=== PATIENT | male | born 1990 | race Caucasian/White ===

== ENCOUNTER 2017-01-10 10:15 | Emergency (ER) | payer OTHER ==
[2017-01-10] MEDS ORDERED: Sodium Chloride 0.9% 1000 ML 1,000 ML IV STA (10:41)
[2017-01-10] MEDS ORDERED: Phenergan 25 MG INJ IV ONE (10:41)
[2017-01-10] MEDS ORDERED: Phenergan 25 MG INJ ONE (10:46)
[2017-01-10] MEDS ORDERED: Sodium Chloride 0.9% 1000 ML 1,000 ML ONE (10:46)
--- NOTE | 2017-01-10 10:46 | ERPHSYRPT ---
- History of Present Illness Time Seen by Provider: 01/10/17 10:37 Historian: patient Exam Limitations: no limitations Patient Subjective Stated Complaint: PT REPORTS WAKING UP TO RIGHT SIDED ABD PAIN-REPORTS N/V/D-STATES HE THINKS IT IS HIS GALLBLADDER Triage Nursing Assessment: PT [place] DRY-BOWEL SOUNDS PRESENT-ABD SOFT ET TENDER TO PALP-NO REBOUND TENDERNESS NOTED Physician History: 26-year-old white male with history of right arm fracture multiple dislocation GERD. Patient arrives with complaint of low getting up this morning with the right upper quadrant pain vomiting, loose stools. Patient has not had a fever. Past medical history includes fracture left arm multiple dislocations GERD lives Timing/Duration: today (this morning) Activities at Onset: rest Quality: cramping Abdominal Pain Onset Location: RUQ Pain Radiation: no radiation Severity of Pain-Max: moderate Severity of Pain-Current: moderate Modifying Factors: Improves With: vomiting. Worsens With: analgesics, antacids , breathing, coughing, defecating, eating, exercise, lying down, movement, palpation, rest, urinating, position, walking Associated Symptoms: nausea, No back, No chest pain, No diaphoresis, No fever/ chills, No fatigue, No headache, No heartburn, No loss of appetite, No neck pain , No rash, No shortness of breath, No syncope, No testicular pain Previous symptoms: no prior history Allergies/Adverse Reactions: No Known Drug Allergies Allergy (Verified 01/10/17 10:32) Home Medications: No Home Meds 1 ea UD 07/17/16 [History] Hx Tetanus, Diphtheria Vaccination/Date Given: Yes Hx Influenza Vaccination/Date Given: No Hx Pneumococcal Vaccination/Date Given: No Immunizations Up to Date: Yes - Review of Systems Constitutional: No Fever, No Chills Eyes: No Symptoms Ears, Nose, & Throat: No Symptoms Respiratory: No Cough, No Dyspnea Cardiac: No Chest Pain, No Edema, No Syncope Abdominal/Gastrointestinal: Abdominal Pain, Nausea, Vomiting, Diarrhea, No Constipation, No Hematemesis, No Hematochezia, No Melena, No Dysphagia, No Appetite Changes Genitourinary Symptoms: No Dysuria Musculoskeletal: No Back Pain, No Neck Pain Skin: No Rash Neurological: No Dizziness, No Focal Weakness, No Sensory Changes Psychological: No Symptoms Endocrine: No Symptoms All Other Systems: Reviewed and Negative - Past Medical History Pertinent Past Medical History: Yes Neurological History: No Pertinent History ENT History: No Pertinent History Cardiac History: No Pertinent History Respiratory History: Asthma Endocrine Medical History: No Pertinent History Musculoskeletal History: Fractures, Other GI Medical History: GERD History: No Pertinent History Psycho-Social History: No Pertinent History Male Reproductive Disorders: No Pertinent History Other Medical History: fx L arm, R shoulder multiple dislocations - Past Surgical History Past Surgical History: No Neuro Surgical History: No Pertinent History Cardiac: No Pertinent History Respiratory: No Pertinent History Gastrointestinal: No Pertinent History Genitourinary: No Pertinent History Musculoskeletal: No Pertinent History Male Surgical History: No Pertinent History - Social History Smoking Status: Never smoker How long have you smoked: 7 Exposure to second hand smoke: No Drug Use: marijuana Patient Lives Alone: No - Nursing Vital Signs Nursing Vital Signs: Initial Vital Signs Temperature 98.2 F Temperature Source Oral Pulse Rate 52 Respiratory Rate 22 Blood Pressure [Right Arm] 120/68 Pain Intensity 0 - Physical Exam General Appearance: no apparent distress, alert Eye Exam: PERRL/EOMI, eyes nml inspection Ears, Nose, Throat Exam: normal ENT inspection, pharynx normal, moist mucous membranes Neck Exam: normal inspection, non-tender, supple, full range of motion Respiratory Exam: normal breath sounds, lungs clear, No respiratory distress Cardiovascular Exam: regular rate/rhythm, normal heart sounds Gastrointestinal/Abdomen Exam: soft, normal bowel sounds, tenderness (mild diffuse tenderness) Back Exam: normal inspection, normal range of motion, No CVA tenderness, No vertebral tenderness Extremity Exam: normal inspection, normal range of motion, pelvis stable Neurologic Exam: alert, oriented x 3, cooperative, normal mood/affect, nml cerebellar function, sensation nml, No motor deficits Skin Exam: normal color, warm, dry SpO2 Interpretation: normal (97%) SpO2: 97 Oxygen Delivery: Room Air - Course Nursing assessment & vital signs reviewed: Yes Ordered Tests: Active Orders 24 hr Category Date Time Status IV Insertion STAT Care 01/10/17 10:41 Active AMYLASE Stat Lab 01/10/17 10:51 Completed CBC W DIFF Stat Lab 01/10/17 10:51 Completed CMP Stat Lab 01/10/17 10:51 Completed LIPASE Stat Lab 01/10/17 10:51 Completed UA W/ MICROSCOPIC Stat Lab 01/10/17 10:51 Completed Medication Summary Discontinued Medications Generic Name Dose Route Start Last Admin Trade Name Freq PRN Reason Stop Dose Admin Sodium Chloride 1,000 mls @ 999 mls/hr 01/10/17 10:41 01/10/17 10:50 Sodium Chloride 0.9% 1000 Ml IV 01/10/17 11:41 999 mls/hr .Q1H1M STA Administration Sodium Chloride Confirm 01/10/17 10:46 Sodium Chloride 0.9% 1000 Ml Administered 01/10/17 10:47 Dose 1,000 mls @ ud .ROUTE .STK-MED ONE Promethazine HCl 12.5 mg 01/10/17 10:41 01/10/17 10:50 Phenergan 25 Mg Inj IV 01/10/17 10:42 12.5 mg STAT ONE Administration Promethazine HCl Confirm 01/10/17 10:46 Phenergan 25 Mg Inj Administered 01/10/17 10:47 Dose 25 mg .ROUTE .STK-MED ONE Lab/Rad Data: Laboratory Result Diagrams 01/10/17 10:51 01/10/17 10:51 Laboratory Results 01/10/17 01/10/17 01/10/17 Range/Units 10:51 10:51 10:51 WBC (4.0-10.5) K/mm3 RBC (4.1-5.6) M/mm3 Hgb (12.5-18.0) gm/dl Hct (42-50) % MCV (78-100) fl MCH (26-32) pg MCHC (32-36) g/dl RDW (11.5-14.0) % Plt Count (150-450) K/mm3 MPV (6-9.5) fl Gran % (36.0-66.0) % Lymphocytes % (24.0-44.0) % Monocytes % (0.0-12.0) % Eosinophils % (0.00-5.0) % Basophils % (0.0-0.4) % Basophils # (0-0.4) Sodium 142 (136-145) mEq/L Potassium 3.8 (3.5-5.1) mEq/L Chloride 107 (98-107) mEq/L Carbon Dioxide 27.3 (21-32) mEq/L Anion Gap 11.8 (5-15) MEQ/L BUN 9 (9-20) mg/dL Creatinine 0.94 (0.55-1.30) mg/dl Estimated GFR > 60 ML/MIN Glucose 86 (70-110) MG/DL Calcium 8.3 L (8.5-10.1) mg/dL Total Bilirubin 0.3 (0.2-1.0) mg/dL AST 15 (15-37) U/L ALT 15 (12-78) U/L Alkaline Phosphatase 86 (46-116) U/L Serum Total Protein 6.6 (6.4-8.2) gm/dL Albumin 3.6 (3.4-5.0) g/dL Amylase 51 (25-115) U/L Lipase 227 (73-393) U/L Ur Collection Type VOID Urine Color YELLOW (YELLOW) Urine Appearance CLEAR (CLEAR) Urine pH 6.0 (5-6) Ur Specific Morrison >=1.030 (1.005-1.025) Urine Protein TRACE (Negative) Urine Glucose (UA) NEGATIVE (NEGATIVE) mg/dL Urine Ketones NEGATIVE (NEGATIVE) Urine Nitrite NEGATIVE (NEGATIVE) Urine Bilirubin NEGATIVE (NEGATIVE) Urine Urobilinogen 0.2 (0-1) mg/dL Urine WBC (Auto) NEGATIVE (NEGATIVE) Urine RBC (Auto) NEGATIVE (0-5) Brendan/ul Urine Bacteria RARE (NEGATIVE) /HPF Urine Mucus MODERATE (NEGATIVE) /HPF Influenza Type A Ag POSITIVE (NEGATIVE) Influenza Type B Ag NEGATIVE (NEGATIVE) RSV (PCR) NEGATIVE (Negative) Specimen Received 01/10/17 1055 01/10/17 Range/Units 10:51 WBC 5.4 (4.0-10.5) K/mm3 RBC 5.13 (4.1-5.6) M/mm3 Hgb 15.4 (12.5-18.0) gm/dl Hct 45.3 (42-50) % MCV 88.3 (78-100) fl MCH 30.0 (26-32) pg MCHC 34.0 (32-36) g/dl RDW 13.4 (11.5-14.0) % Plt Count 215 (150-450) K/mm3 MPV 11.0 H (6-9.5) fl Gran % 52.1 (36.0-66.0) % Lymphocytes % 33.5 (24.0-44.0) % Monocytes % 12.9 H (0.0-12.0) % Eosinophils % 1.1 (0.00-5.0) % Basophils % 0.4 (0.0-0.4) % Basophils # 0.02 (0-0.4) Sodium (136-145) mEq/L Potassium (3.5-5.1) mEq/L Chloride (98-107) mEq/L Carbon Dioxide (21-32) mEq/L Anion Gap (5-15) MEQ/L BUN (9-20) mg/dL Creatinine (0.55-1.30) mg/dl Estimated GFR ML/MIN Glucose (70-110) MG/DL Calcium (8.5-10.1) mg/dL Total Bilirubin (0.2-1.0) mg/dL AST (15-37) U/L ALT (12-78) U/L Alkaline Phosphatase (46-116) U/L Serum Total Protein (6.4-8.2) gm/dL Albumin (3.4-5.0) g/dL Amylase (25-115) U/L Lipase (73-393) U/L Ur Collection Type Urine Color (YELLOW) Urine Appearance (CLEAR) Urine pH (5-6) Ur Specific Morrison (1.005-1.025) Urine Protein (Negative) Urine Glucose (UA) (NEGATIVE) mg/dL Urine Ketones (NEGATIVE) Urine Nitrite (NEGATIVE) Urine Bilirubin (NEGATIVE) Urine Urobilinogen (0-1) mg/dL Urine WBC (Auto) (NEGATIVE) Urine RBC (Auto) (0-5) Brendan/ul Urine Bacteria (NEGATIVE) /HPF Urine Mucus (NEGATIVE) /HPF Influenza Type A Ag (NEGATIVE) Influenza Type B Ag (NEGATIVE) RSV (PCR) (Negative) Specimen Received - Progress Progress: improved Progress Note: 01/10/17 12:48 Patient with positive influenza A. Patient received IV normal saline Phenergan he is improving. CBC CMP amylase lipase are essentially normal Will discharge with Tamiflu Zofran and Jackson - Departure Time of Disposition: 12:49 Departure Disposition: Home Clinical Impression: Right upper quadrant abdominal pain, Nausea, vomiting, and diarrhea, Influenza A Condition: Fair Critical Care Time: No Referrals: JESSICA GUZMÁN [Primary Care Provider] - Instructions: Abdominal Pain-Adult Additional Instructions: Return home. Plenty of fluids. Clear fluids only 24-48 hours if abdominal pain nausea vomiting or diarrhea. Phenergan 25 mg one orally every 4-6 hours as needed for nausea. Jackson 5/325 #12 one orally every 4-6 hours as needed for pain. Follow-up with your family . symptoms are worse, no better in 48-72 hours, or persist longer than one week . Return for acute distress or for severe symptoms Prescriptions: Hydrocodone Bit/Acetaminophen [Jackson 5/325Mg] 1 tab PO Q4-6HPRN PRN #12 tablet PRN Reason: Pain Oseltamivir 75 mg [Tamiflu 75MG Capsule] 75 mg PO BID #10 cap Promethazine HCl 25 mg [Phenergan 25 mg] 25 mg PO Q4-6HPRN PRN #12 tablet PRN Reason: nausea and vomiting
[2017-01-10 10:54] LABS: BASOPHIL % 0.4 % (0.0-0.4); Eosinophil % 1.1 % (0.00-5.0); Granulocytes % 52.1 % (36.0-66.0); Lymphocytes % 33.5 % (24.0-44.0); Mean Cell Volume 88.3 fl (78-100); Monocytes % 12.9 % (0.0-12.0); Platelet Count 215 K/mm3 (150-450); Red Blood Count 5.13 M/mm3 (4.1-5.6); Red Cell Distribution Width 13.4 % (11.5-14.0); White Blood Count 5.4 K/mm3 (4.0-10.5)
[2017-01-10 10:58] LABS: Collection Type VOID
[2017-01-10 10:59] LABS: COMPLETE URINE MICROSCOPIC? YES
[2017-01-10 11:14] LABS: ALBUMIN 3.6 g/dL (3.4-5.0); ALKALINE PHOSPHATASE 86 U/L (46-116); ANION GAP 11.8 MEQ/L (5-15); BILIRUBIN,TOTAL 0.3 mg/dL (0.2-1.0); BLOOD UREA NITROGEN 9 mg/dL (9-20); Bacteria RARE /HPF (NEGATIVE); CHLORIDE 107 mEq/L (98-107); Carbon Dioxide 27.3 mEq/L (21-32); Glucose 86 MG/DL (70-110); LIPASE 227 U/L (73-393); Mucus MODERATE /HPF (NEGATIVE); Potassium 3.8 mEq/L (3.5-5.1); SGOT/AST 15 U/L (15-37); SGPT/ALT 15 U/L (12-78); SODIUM 142 mEq/L (136-145); Total Protein 6.6 gm/dL (6.4-8.2)
[2017-01-10 13:03] VITALS: BP 134/68; PULSE 74; O2SAT 16
== END 2017-01-10 13:02 | disposition home or self-care (01) ==
LOC: ED 10:15
DX: R10.11 Right upper quadrant pain (principal); R11.2 Nausea with vomiting, unspecified; R19.7 Diarrhea, unspecified; J11.1 Influenza due to unidentified influenza virus with other respiratory manifestations
CPT/HCPCS: 36000; 36415; 80053; 81000; 82150; 83690; 85025; 87631; 96360; 96374; 99283; 99284; J2550

== ENCOUNTER 2017-12-17 09:31 | Emergency (ER) | payer OTHER ==
[2017-12-17] MEDS ORDERED: Norflex 60 MG/2 ML IM ONE (09:51)
[2017-12-17] MEDS ORDERED: TORAdol 30 mg Injection IM ONE (09:51)
--- NOTE | 2017-12-17 09:57 | ERPHSYRPT ---
- History of Present Illness Time Seen by Provider: 12/17/17 09:52 Source: patient Exam Limitations: no limitations Patient Subjective Stated Complaint: lower back pain started yesterday after shoveling rock all day Triage Nursing Assessment: ambulate to room guarding lower back. skin w/d, color normal, resp easy. denies any other c/o at this time. Physician History: 27-year-old white male arrives with complaint of lower back pain symptoms since yesterday morning while shoveling rock. Patient states he was shoveling rock yesterday when he felt a sharp pain in his lower back he is having pain in the lower back. Is not having any sensory loss. Denies other complaints. Patient states pain is worse today. Past medical history includes asthma, fractures, GERD, fracture left arm, multiple dislocations of the patient's right shoulder. Past surgical history is negative. Timing/Duration: yesterday Method of Injury: other (shoveling rock) Quality: sharp, aching Back Pain Location: lumbar spine Severity of Pain-Max: moderate Severity of Pain-Current: moderate Modifying Factors: Improves With: movement Associated Symptoms: lower back pain, No fever, No chills, No sweating, No urinary incontinence, No loss of bowel control, No constipation, No nausea, No vomiting, No problems urinating, No light-headedness, No dizziness, No numbness in legs/feet, No weakness, No sensory/motor loss, No tingling in legs/feet, No muscle spasms Previous symptoms: no prior history Allergies/Adverse Reactions: No Known Drug Allergies Allergy (Verified 12/17/17 09:43) Home Medications: No Home Meds [No Home Meds] 1 moiz VALENTINO 07/17/16 [History] Hx Tetanus, Diphtheria Vaccination/Date Given: Yes (2012) Hx Influenza Vaccination/Date Given: No Hx Pneumococcal Vaccination/Date Given: No - Review of Systems Constitutional: No Fever, No Chills Eyes: No Symptoms Ears, Nose, & Throat: No Symptoms Respiratory: No Cough, No Dyspnea Cardiac: No Chest Pain, No Edema, No Syncope Abdominal/Gastrointestinal: No Abdominal Pain, No Nausea, No Vomiting, No Diarrhea Genitourinary Symptoms: No Dysuria Musculoskeletal: Back Pain, Injury, No Arthralgias, No Neck Pain, No Deformity, No Fall, No Joint Redness, No Joint Pain, No Joint Swelling, No Myalgias Skin: No Rash Neurological: No Dizziness, No Focal Weakness, No Sensory Changes Psychological: No Symptoms Endocrine: No Symptoms All Other Systems: Reviewed and Negative - Past Medical History Pertinent Past Medical History: Yes Neurological History: No Pertinent History ENT History: No Pertinent History Cardiac History: No Pertinent History Respiratory History: Asthma Endocrine Medical History: No Pertinent History Musculoskeletal History: Fractures, Other GI Medical History: GERD History: No Pertinent History Psycho-Social History: Depression Male Reproductive Disorders: No Pertinent History Other Medical History: fx L arm, R shoulder multiple dislocations - Past Surgical History Past Surgical History: No Neuro Surgical History: No Pertinent History Cardiac: No Pertinent History Respiratory: No Pertinent History Gastrointestinal: No Pertinent History Genitourinary: No Pertinent History Musculoskeletal: No Pertinent History Male Surgical History: No Pertinent History - Social History Smoking Status: Current every day smoker How long have you smoked: 15 Exposure to second hand smoke: No Drug Use: marijuana Patient Lives Alone: No - Nursing Vital Signs Nursing Vital Signs: Initial Vital Signs Temperature 97.6 F 12/17/17 09:39 Pulse Rate 78 12/17/17 09:39 Respiratory Rate 16 12/17/17 09:39 Blood Pressure 132/75 12/17/17 09:39 O2 Sat by Pulse Oximetry 99 12/17/17 09:39 Pain Scale Pain Intensity 6 - Physical Exam General Appearance: mild distress Ears, Nose, Throat Exam: normal ENT inspection, TMs normal, pharynx normal, moist mucous membranes, No dry mucous membranes, No TM abnormal (R), No TM abnormal (L), No pharyngeal erythema, No tonsillar exudate Neck Exam: normal inspection, non-tender, supple, full range of motion, No meningismus, No midline tenderness Respiratory Exam: normal breath sounds Cardiovascular Exam: regular rate/rhythm, normal heart sounds Gastrointestinal Exam: soft, No tenderness, No mass Back Exam: point tenderness, other (patient tender with palpation and movement in the right low lumbar region. 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, normal mood/affect, nml station & gait, sensation nml, No motor deficits Skin Exam: normal color, warm, dry, No rash SpO2 Interpretation: normal SpO2: 99 Oxygen Delivery: Room Air - Course Nursing assessment & vital signs reviewed: Yes - Radiology Exams L-Spine X-ray Interpretation: Discussed w/ radiologist, Other (stable non acute lumbar spine with chronic features) Ordered Tests: Active Orders 24 hr Category Date Time Status LUMBAR LIMITED (2 OR 3 VIEWS) Stat Exams 12/17/17 09:51 Completed Medication Summary Discontinued Medications Generic Name Dose Route Start Last Admin Trade Name Cristinoq PRN Reason Stop Dose Admin Ketorolac Tromethamine 60 mg 12/17/17 09:51 12/17/17 10:11 Toradol 30 Mg Injection IM 12/17/17 09:52 60 mg STAT ONE Administration Ketorolac Tromethamine Confirm 12/17/17 10:07 Toradol 30 Mg Injection Administered 12/17/17 10:08 Dose 60 mg .ROUTE .STK-MED ONE Orphenadrine Citrate 60 mg 12/17/17 09:51 12/17/17 10:11 Norflex 60 Mg/2 Ml IM 12/17/17 09:52 60 mg STAT ONE Administration Orphenadrine Citrate Confirm 12/17/17 10:07 Norflex 60 Mg/2 Ml Administered 12/17/17 10:08 Dose 60 mg .ROUTE .STK-MED ONE - Progress Progress: improved Progress Note: 12/17/17 09:58 27-year-old white male arrives with complaint of pain in the right back lumbar region symptoms since yesterday. He states he injured his back while shoveling rock he felt a sharp pain. He has pain with movement and palpation in the right posterior lumbar region. Patient is able to sit with both thighs flexed at the hips to 90 and both knees extended. He has full range of motion to all extremities. Patient is given Toradol 60 mg Norflex 60 mg IM will obtain lumbar series. 12/17/17 10:25 Patient improved, not completely pain-free after Toradol and Norflex. Will discharge with the Flexeril 10 mg orally 3 times a day for 5 days. Naprosyn 500 mg one orally twice a day with food #20. - Departure Time of Disposition: 10:26 Departure Disposition: Home Clinical Impression: Back pain Qualifiers: Back pain location: low back pain Chronicity: acute Back pain laterality: right Sciatica presence: without sciatica Qualified Code(s): M54.5 - Low back pain Lumbar strain Qualifiers: Encounter type: initial encounter Qualified Code(s): S39.012A - Strain of muscle, fascia and tendon of lower back, initial encounter Condition: Fair Critical Care Time: No Referrals: JESSICA GUZMÁN [Primary Care Provider] - Instructions: Low Back Pain (DC) Additional Instructions: Return home. Cold packs to area 24-48 hours. Avoid strenuous bending twisting lifting pushing pulling 48 hours longer if pain persists. Follow-up with your family doctor if symptoms are worse, no better in 48 hours, or persist longer than one week. Return for acute distress or for severe symptoms. Flexeril and Naprosyn as prescribed Prescriptions: Cyclobenzaprine HCl [Flexeril] 10 mg PO TID #15 tablet Naproxen 500 mg [Naprosyn 500 MG] 500 mg PO BID #20 tablet
[2017-12-17] MEDS ORDERED: TORAdol 30 mg Injection ONE (10:07)
[2017-12-17] MEDS ORDERED: Norflex 60 MG/2 ML ONE (10:07)
--- NOTE | 2017-12-17 10:35 | XRAY ---
Indication: Low back pain following shoveling injury one day ago. Comparison: July 13, 2016. 3 views of the lumbar spine again demonstrates normal alignment with minimal multilevel endplate spurring and tiny multilevel Schmorl nodes. Vertebral body heights and disc spaces maintained. Again no acute fracture, subluxation, or suspicious bony lesions. Visualized soft tissues unremarkable. Impression: Stable nonacute lumbar spine with chronic features.
[2017-12-17 11:01] VITALS: BP 130/68; PULSE 76; O2SAT 98
== END 2017-12-17 11:07 | disposition home or self-care (01) ==
LOC: ED 09:31
DX: M54.5 Low back pain (principal); S39.012A Strain of muscle, fascia and tendon of lower back, initial encounter; X50.3XXA Overexertion from repetitive movements, initial encounter; X50.0XXA Overexertion from strenuous movement or load, initial encounter
CPT/HCPCS: 72100; 96372; 99283; 99284; J1885; J2360

== ENCOUNTER 2018-02-27 14:36 | Emergency (ER) | payer OTHER ==
[2018-02-27 14:57] VITALS: BP 140/98; PULSE 82; O2SAT 99
--- NOTE | 2018-02-27 15:15 | ERPHSYRPT ---
- History of Present Illness Time Seen by Provider: 02/27/18 15:00 Source: patient Patient Subjective Stated Complaint: was at work and moved a washer and dryer today and now has lower back, states hurts to bend over Triage Nursing Assessment: pt alert, walked in, pt gaurding back, resp easy, skin w/d/p Physician History: CC: back pain Hx: 27 y/o patient of Dr Valencia. He has back pain since this AM lifting a washing machine while working at the [employer]. He has strained back in the past, last was when he was shoveling gravel a few months ago. No N/T/W. No fever or chills. Normal urination. Occurred this AM. Back Pain Location: lumbar spine Severity of Pain-Max: moderate Severity of Pain-Current: moderate Allergies/Adverse Reactions: No Known Drug Allergies Allergy (Verified 02/27/18 14:57) Home Medications: No Home Meds [No Home Meds] 1 ea [facility] 07/17/16 [History] Hx Tetanus, Diphtheria Vaccination/Date Given: No Hx Influenza Vaccination/Date Given: No Hx Pneumococcal Vaccination/Date Given: No Immunizations Up to Date: Yes - Review of Systems Constitutional: No Fever, No Chills Eyes: No Symptoms Ears, Nose, & Throat: No Symptoms Respiratory: No Cough Cardiac: No Chest Pain Abdominal/Gastrointestinal: No Abdominal Pain Genitourinary Symptoms: No Dysuria, No Incontinence Musculoskeletal: Back Pain Skin: No Rash Neurological: No Focal Weakness, No Headache, No Parasthesia All Other Systems: Reviewed and Negative - Past Medical History Pertinent Past Medical History: Yes Neurological History: No Pertinent History ENT History: No Pertinent History Cardiac History: No Pertinent History Respiratory History: Asthma Endocrine Medical History: No Pertinent History Musculoskeletal History: Fractures, Other GI Medical History: GERD History: No Pertinent History Psycho-Social History: Depression Male Reproductive Disorders: No Pertinent History Other Medical History: fx L arm, R shoulder multiple dislocations - Past Surgical History Past Surgical History: No Neuro Surgical History: No Pertinent History Cardiac: No Pertinent History Respiratory: No Pertinent History Gastrointestinal: No Pertinent History Genitourinary: No Pertinent History Musculoskeletal: No Pertinent History Male Surgical History: No Pertinent History - Social History Smoking Status: Current every day smoker How long have you smoked: 15 Exposure to second hand smoke: Yes Drug Use: none Patient Lives Alone: No - Nursing Vital Signs Nursing Vital Signs: Initial Vital Signs Temperature 97.8 F 02/27/18 14:51 Pulse Rate 82 02/27/18 14:51 Respiratory Rate 18 02/27/18 14:51 Blood Pressure 140/98 02/27/18 14:51 O2 Sat by Pulse Oximetry 99 02/27/18 14:51 Pain Scale Pain Intensity 4 - Physical Exam General Appearance: alert Eye Exam: PERRL/EOMI Ears, Nose, Throat Exam: normal ENT inspection, moist mucous membranes Neck Exam: normal inspection, non-tender, supple Respiratory Exam: normal breath sounds, lungs clear Cardiovascular Exam: regular rate/rhythm Gastrointestinal Exam: soft, No tenderness, No distention, No mass, No guarding Male Genetalia Exam: normal genitalia, No hernia, No testicular tenderness Back Exam: normal inspection, muscle spasm (bilateral lumbar), No CVA tenderness , No vertebral tenderness Extremity Exam: normal inspection, normal range of motion Neurologic Exam: alert, oriented x 3, cooperative, 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 Not sure if workers comp. Offered pain and muscle relaxer injections but he does not like shots so declined. Rx norflex. Instr given. Counseled pt/family regarding: diagnosis, need for follow-up - Departure Time of Disposition: 15:14 Departure Disposition: Home Clinical Impression: Lumbar sprain Qualifiers: Encounter type: initial encounter Qualified Code(s): S33.5XXA - Sprain of ligaments of lumbar spine, initial encounter Condition: Stable Critical Care Time: No Referrals: JESSICA VALENCIA [Primary Care Provider] - Instructions: Low Back Pain (DC) Additional Instructions: BACK INJURY 1. May apply moist heat frequently for relief of pain. Take care not to burn the skin. Do not use heat for more than 30 minutes at a time. 2. Try to sleep on a firm bed, flat on your back. 3. If no improvement is noticed in 2-3 days, follow up with your family physician. 4. If you notice any numbness, tingling, weakness, or problems with your bowel or bladder, you should call your family physician or return to the emergency department. Take ibuprofen 600mg every 6 hours. Rx norflex for muscle relaxer- no driving or operating machinery. Follow up with Dr Valencia in 1-2 days if not improved. Prescriptions: Ibuprofen 600 mg PO Q6H PRN PRN #24 tablet PRN Reason: Pain Orphenadrine Citrate 100 mg [Norflex 100 MG Tablet] 1 tab PO BID #10 tab
== END 2018-02-27 17:06 | disposition home or self-care (01) ==
LOC: ED 14:36
DX: S33.5XXA Sprain of ligaments of lumbar spine, initial encounter (principal); X50.0XXA Overexertion from strenuous movement or load, initial encounter; Y99.0 Civilian activity done for income or pay
CPT/HCPCS: 99281; 99283

== ENCOUNTER 2018-08-28 09:54 | Emergency (ER) | payer OTHER ==
[2018-08-28 10:07] VITALS: BP 129/91; PULSE 73; O2SAT 100
--- NOTE | 2018-08-28 10:16 | ERPHSYRPT ---
- History of Present Illness Time Seen by Provider: 08/28/18 10:10 Source: patient Exam Limitations: no limitations Patient Subjective Stated Complaint: pt reports multiple bee stings to the upper extremities while doing yard work [employer]ARN[employer] DIRECT[employer]. states he thinks he was allergic to bees as a child and wanted to be checked out. Triage Nursing Assessment: pt is aox3, pupils perrl, afebrile, resps easy and non labored, skin pink warm dry. pt has a raised, reddened area noted to the left wrist that is firm and warm to touch, pt also has a raised area to the right upper arm. skin is intact. pt denies any shortness of breath, some mild pain reported to each site. Physician History: The patient is a 27-year-old male complaining of getting stung by a bee on his left wrist and his right upper arm about 45 minutes before arrival. He was working in the flower bed at home, cutting trees out of the [place], when he was stung. He denies shortness of breath. The area on his wrist and arm are mildly swollen and red. He did not take Benadryl. He thought when he was very young that he had a bee sting allergy to cause he was stung on the neck one time and it swelled up. Timing/Duration: today, hour(s) (45 mins), sudden Quality: burning, painful Severity: mild Location: extremities (left wrist, right upper arm) Possible Causes: insect sting Associated Symptoms: rash Allergies/Adverse Reactions: No Known Drug Allergies Allergy (Verified 08/28/18 10:07) Home Medications: No Home Meds [No Home Meds] 1 [facility] VALENTINO 07/17/16 [History] Hx Tetanus, Diphtheria Vaccination/Date Given: Yes Hx Influenza Vaccination/Date Given: No Hx Pneumococcal Vaccination/Date Given: No Immunizations Up to Date: Yes - Review of Systems Constitutional: No Fever, No Chills Eyes: No Symptoms Ears, Nose, & Throat: No Symptoms Respiratory: No Cough, No Dyspnea Cardiac: No Chest Pain, No Edema, No Syncope Abdominal/Gastrointestinal: No Abdominal Pain, No Nausea, No Vomiting, No Diarrhea Genitourinary Symptoms: No Dysuria Musculoskeletal: No Back Pain, No Neck Pain Skin: Rash Neurological: No Dizziness, No Focal Weakness, No Sensory Changes Psychological: No Symptoms Endocrine: No Symptoms Hematologic/Lymphatic: No Symptoms Immunological/Allergic: No Symptoms - Past Medical History Pertinent Past Medical History: Yes Neurological History: No Pertinent History ENT History: No Pertinent History Cardiac History: No Pertinent History Respiratory History: Asthma Endocrine Medical History: No Pertinent History Musculoskeletal History: Fractures, Other GI Medical History: GERD History: No Pertinent History Psycho-Social History: Depression Male Reproductive Disorders: No Pertinent History Other Medical History: fx L arm, R shoulder multiple dislocations - Past Surgical History Past Surgical History: No Neuro Surgical History: No Pertinent History Cardiac: No Pertinent History Respiratory: No Pertinent History Gastrointestinal: No Pertinent History Genitourinary: No Pertinent History Musculoskeletal: No Pertinent History Male Surgical History: No Pertinent History - Social History Smoking Status: Current every day smoker How long have you smoked: 15 Exposure to second hand smoke: Yes Drug Use: marijuana Patient Lives Alone: No - Nursing Vital Signs Nursing Vital Signs: Initial Vital Signs Temperature 97.9 F 08/28/18 09:58 Pulse Rate 73 08/28/18 09:58 Respiratory Rate 18 08/28/18 09:58 Blood Pressure 129/91 08/28/18 09:58 O2 Sat by Pulse Oximetry 100 08/28/18 09:58 Pain Scale Pain Intensity 4 - Physical Exam General Appearance: no apparent distress, alert Eye Exam: PERRL/EOMI, eyes nml inspection Ears, Nose, Throat Exam: normal ENT inspection, pharynx normal, moist mucous membranes Neck Exam: normal inspection, non-tender, supple, full range of motion Respiratory Exam: normal breath sounds, lungs clear, No respiratory distress Cardiovascular Exam: regular rate/rhythm, normal heart sounds Gastrointestinal/Abdomen Exam: soft, mass, No tenderness Rectal Exam: not done Back Exam: normal inspection, normal range of motion, No CVA tenderness, No vertebral tenderness Extremity Exam: normal inspection, normal range of motion Neurologic Exam: alert, oriented x 3, cooperative, normal mood/affect, sensation nml, No motor deficits Skin Exam: rash (Examination of the skin: There is mild raised erythematous rash over the left wrist of approximately 2 x 4 cm. There is also a similar rash of similar size over the right upper arm.) SpO2 Interpretation: normal SpO2: 100 Oxygen Delivery: Room Air - Progress Progress Note: 08/28/18 10:14 The patient is in no distress. The patient could use Benadryl 50 mg. The patient is self driving and is unable to have someone pick him up. The patient agrees to picker and sorter load and unload Benadryl from the local [facility] upon release and take 50 mg. Counseled pt/family regarding: diagnosis - Departure Time of Disposition: 10:16 Departure Disposition: Home Clinical Impression: Bee sting Condition: Stable Critical Care Time: No Referrals: JESSICA GUZMÁN [Primary Care Provider] - Additional Instructions: You were stung by 2 bees and have a mild reaction to the sting. Take Benadryl 50 mg every 2-4 hours as needed. If her condition worsens, do not hesitate to return immediately to the ER.
== END 2018-08-28 10:24 | disposition home or self-care (01) ==
LOC: ED 09:54
DX: R21 Rash and other nonspecific skin eruption (principal); T63.441A Toxic effect of venom of bees, accidental (unintentional), initial encounter
CPT/HCPCS: 99283

== ENCOUNTER 2019-09-23 16:41 | Emergency (ER) | payer OTHER ==
[2019-09-23] MEDS ORDERED: BENADRYL 50 MG/ML IV ONE (17:06)
--- NOTE | 2019-09-23 17:06 | ERPHSYRPT ---
- History of Present Illness Time Seen by Provider: 09/23/19 16:50 Source: patient Exam Limitations: no limitations Patient Subjective Stated Complaint: Pt had sudden onset of tingling of lips and hands and fingers and the right arm felt like it was asleep, chest feels tight, he thinks he might be having a panic attack but there hasn't been any relief but it hasn't gotten any worse, has a hx of panic attacks Triage Nursing Assessment: Pt walked into the ER, stated that he thought that he was probably having a panic attack but he hasn't been able to calm himself down, vitals wnl, pulses normal, lungs clear, denies pain, denies alcohol or drug use, doesn't appear to be in any distress Physician History: Patient had dyspnea, paresthesias in his fingers and around his lips and chest tightness two hours prior to coming into the emergency department. He has a history of panic attacks and without his resolution of his symptoms with deep breathing, he came into the emergency department. Timing/Duration: today Activities at Onset: emotional stress Severity of Dyspnea-Max: moderate Severity of Dyspnea-Current: none Possible Cause: occasional episodes (history of panic disorder) Modifying Factors: Improves With: deep breath Associated Symptoms: constant, anxiety, chest pain/discomfort, heart racing, tightness, No cough, No edema, No fever, No loss of appetite, No lightheadedness , No wheezing, No weakness, No ankle swelling, No hemoptysis, No calf pain, No dizziness, No heaviness, No lightheadedness, No leg swelling, No muscle spasms feet, No muscle spasms hands, No painful breathing, No productive cough, No sweating International travel in last 2 weeks: No Allergies/Adverse Reactions: No Known Drug Allergies Allergy (Verified 09/23/19 16:52) Home Medications: No Reportable Medications [No Reported Medications] 09/23/19 [History] Hx Tetanus, Diphtheria Vaccination/Date Given: Yes Hx Influenza Vaccination/Date Given: No Hx Pneumococcal Vaccination/Date Given: No - Review of Systems Constitutional: No Fever, No Chills, No Fatigue Eyes: No Eye Pain, No Vision Changes Ears, Nose, & Throat: No Nose Congestion, No Mouth Pain, No Mouth Swelling, No Painful Swallowing Respiratory: Dyspnea, No Cough Cardiac: Chest Pain, Palpitations, No Edema, No Syncope Abdominal/Gastrointestinal: No Abdominal Pain, No Nausea, No Vomiting, No Melena Genitourinary Symptoms: No Dysuria, No Frequency, No Hematuria, No Flank Pain Musculoskeletal: No Back Pain, No Neck Pain Skin: No Pruritis, No Rash Neurological: Parasthesia, No Dizziness, No Focal Weakness, No Headache, No Lethargy, No Sensory Changes, No Tremors, No Vertigo Psychological: Anxiety, No Suicidal Ideations, No Homicidal Ideations, No Hallucinations Endocrine: No Polydipsia, No Excessive Sweating Hematologic/Lymphatic: No Easy Bleeding, No Easy Bruising All Other Systems: Reviewed and Negative - Past Medical History Pertinent Past Medical History: Yes Neurological History: No Pertinent History ENT History: No Pertinent History Cardiac History: No Pertinent History Respiratory History: Asthma Endocrine Medical History: No Pertinent History Musculoskeletal History: Fractures, Other GI Medical History: GERD History: No Pertinent History Psycho-Social History: Anxiety, Depression Male Reproductive Disorders: No Pertinent History Other Medical History: fx L arm, R shoulder multiple dislocations - Past Surgical History Past Surgical History: No Neuro Surgical History: No Pertinent History Cardiac: No Pertinent History Respiratory: No Pertinent History Gastrointestinal: No Pertinent History Genitourinary: No Pertinent History Musculoskeletal: No Pertinent History Male Surgical History: No Pertinent History - Social History Smoking Status: Former smoker How long have you smoked: 15 Exposure to second hand smoke: No Drug Use: none Patient Lives Alone: No - Nursing Vital Signs Nursing Vital Signs: Initial Vital Signs Temperature 99.1 F 09/23/19 16:42 Pulse Rate 94 H 09/23/19 16:42 Respiratory Rate 11 L 09/23/19 16:42 Blood Pressure 149/87 09/23/19 16:42 O2 Sat by Pulse Oximetry 99 09/23/19 16:42 Pain Scale Pain Intensity 0 - Physical Exam General Appearance: no apparent distress, alert Eye Exam: PERRL/EOMI, eyes nml inspection, No scleral icterus, No pale conjunctivae Ears, Nose, Throat Exam: hearing grossly normal, normal ENT inspection, normal pharynx, No abnormal TM (R), No abnormal TM (L), No nasal congestion, No pharyngeal erythema, No tonsillar exudate, No tonsillar swelling Neck Exam: normal inspection, non-tender, supple, full range of motion, No Brudzinski, No meningismus, No subcutaneous emphysema, No tenderness lateral Respiratory Exam: normal breath sounds, lungs clear, airway intact, No chest tenderness, No respiratory distress, No diminished breath sounds, No accessory muscle use, No prolonged expirations, No crackles/rales, No rhonchi, No wheezing , No stridor, No pleural rub Cardiovascular/Chest Exam: normal heart sounds, regular rate/rhythm, normal peripheral pulses Abdominal/Gastrointestinal Exam: soft, normal bowel sounds, No tenderness, No distention, No mass, No guarding, No rebound Extremity Exam: non-tender, normal range of motion, normal inspection, no calf tenderness, pelvis stable, No no pedal edema, No calf tenderness, No pedal edema , No swelling, No zeynep's sign Peripheral Pulses Exam: dorsalis-pedis (R): 2+, dorsalis-pedis (L): 2+ Neurologic Exam: alert, oriented x 3, cooperative, ncqa specialist II-XII nml as tested, normal mood/affect, sensation nml, No intoxicated appearance, No motor weakness , No facial droop, No slurred speech, No abnormal ncqa specialist II-XII, No EOM palsy Skin Exam: normal color, warm, dry, No rash, No petechiae, No jaundice, No cyanosis, No ecchymosis, No jaundice SpO2 Interpretation: normal SpO2: 99 O2 Delivery: Room Air - Course Nursing assessment & vital signs reviewed: Yes EKG Interpreted by Me: RATE (78), Sinus Rhythm, NORMAL AXIS, NORMAL INTERVALS, NORMAL QRS, NORMAL ST-T, Other (no change in comparison to EKG from 06/16/2019) Ordered Tests: Active Orders 24 hr Category Date Time Status IV Insertion STAT Care 09/23/19 17:06 Active CHEST 1 VIEW (PORTABLE) Stat Exams 09/23/19 17:00 Taken CBC W DIFF Stat Lab 09/23/19 18:01 Completed CK-Creatinine Phosphokinase Stat Lab 09/23/19 18:01 Completed CMP Stat Lab 09/23/19 18:01 Completed MAGNESIUM Stat Lab 09/23/19 18:01 Completed NT PRO BNP Stat Lab 09/23/19 18:01 Completed PROTIME WITH INR Stat Lab 09/23/19 18:01 Completed PTT Stat Lab 09/23/19 18:01 Completed TROPONIN Q3H Lab 09/23/19 18:01 Completed TROPONIN Q3H Lab 09/23/19 20:00 Ordered TROPONIN Q3H Lab 09/23/19 23:00 Ordered TROPONIN Q3H Lab 09/24/19 02:00 Ordered TROPONIN Q3H Lab 09/24/19 05:00 Ordered UA W/RFX UR CULTURE Stat Lab 09/23/19 19:16 Completed Urine Triage Profile Stat Lab 09/23/19 19:16 Completed Medication Summary Discontinued Medications Generic Name Dose Route Start Last Admin Trade Name Freq PRN Reason Stop Dose Admin Diphenhydramine HCl 25 mg 09/23/19 17:06 09/23/19 17:39 Benadryl 50 Mg/Ml IV 09/23/19 17:07 25 mg STAT ONE Administration Diphenhydramine HCl Confirm 09/23/19 17:15 Benadryl 50 Mg/Ml Administered 09/23/19 17:16 Dose 50 mg .ROUTE .STK-MED ONE Diphenhydramine HCl Confirm 09/23/19 17:36 Benadryl 50 Mg/Ml Administered 09/23/19 17:37 Dose 50 mg .ROUTE .STK-MED ONE Lab/Rad Data: Laboratory Result Diagrams 09/23/19 18:01 09/23/19 18:01 Laboratory Results 09/23/19 09/23/19 09/23/19 Range/Units 19:16 19:16 18:01 WBC (4.0-10.5) K/mm3 RBC (4.1-5.6) M/mm3 Hgb (12.5-18.0) gm/dl Hct (42-50) % MCV (78-100) fl MCH (26-32) pg MCHC (32-36) g/dl RDW (11.5-14.0) % Plt Count (150-450) K/mm3 MPV (6-9.5) fl Gran % (36.0-66.0) % Eos # (Auto) (0-0.5) Absolute Lymphs (auto) (1.0-4.6) Absolute Monos (auto) (0.0-1.3) Lymphocytes % (24.0-44.0) % Monocytes % (0.0-12.0) % Eosinophils % (0.00-5.0) % Basophils % (0.0-0.4) % Absolute Granulocytes (1.4-6.9) Basophils # (0-0.4) PT (8.83-12.87) SECONDS INR (0.8-3.0) APTT (24.1-36.1) SECONDS Sodium (137-145) mmol/L Potassium (3.5-5.1) mmol/L Chloride (98-107) mmol/L Carbon Dioxide (22-30) mmol/L Anion Gap (5-15) MEQ/L BUN (9-20) mg/dL Creatinine (0.66-1.25) mg/dL Estimated GFR ML/MIN Glucose (74-106) mg/dL Calcium (8.4-10.2) mg/dL Magnesium 1.8 (1.6-2.3) mg/dL Total Bilirubin (0.2-1.3) mg/dL AST (17-59) U/L ALT (0-50) U/L Alkaline Phosphatase (38-126) U/L Creatine Kinase (55-170) U/L Troponin I (0.000-0.034) ng/mL NT-Pro-B Natriuret Pep (0-450) pg/mL Serum Total Protein (6.3-8.2) g/dL Albumin (3.5-5.0) g/dL Urine Color JANIE (YELLOW) Urine Appearance CLEAR (CLEAR) Urine pH 7.0 (5-6) Ur Specific Timpson 1.035 (1.005-1.025) Urine Protein 30 (Negative) Urine Ketones MODERATE (NEGATIVE) Urine Blood NEGATIVE (0-5) Brendan/ul Urine Nitrite NEGATIVE (NEGATIVE) Urine Bilirubin SMALL (NEGATIVE) Urine Urobilinogen 4 (0-1) mg/dL Ur Leukocyte Esterase NEGATIVE (NEGATIVE) Urine WBC (Auto) 0-2 (0-5) /HPF Urine RBC (Auto) NONE (0-2) /HPF U Epithel Cells (Auto) NONE (FEW) /HPF Urine Bacteria (Auto) NONE SEEN (NEGATIVE) /HPF Urine Mucus (Auto) SLIGHT (NEGATIVE) /HPF Urine Culture Reflexed NO (NO) Urine Glucose NEGATIVE (NEGATIVE) mg/dL Urine Opiates Level NEGATIVE (NEGATIVE) Ur Methadone NEGATIVE (NEGATIVE) Urine Barbiturates NEGATIVE (NEGATIVE) Ur Phencyclidine (PCP) NEGATIVE (NEGATIVE) Urine Amphetamine NEGATIVE (NEGATIVE) U Benzodiazepine Level NEGATIVE (NEGATIVE) Urine Cocaine NEGATIVE (NEGATIVE) Urine Marijuana (THC) POSITIVE (NEGATIVE) 09/23/19 09/23/19 09/23/19 Range/Units 18:01 18:01 18:01 WBC (4.0-10.5) K/mm3 RBC (4.1-5.6) M/mm3 Hgb (12.5-18.0) gm/dl Hct (42-50) % MCV (78-100) fl MCH (26-32) pg MCHC (32-36) g/dl RDW (11.5-14.0) % Plt Count (150-450) K/mm3 MPV (6-9.5) fl Gran % (36.0-66.0) % Eos # (Auto) (0-0.5) Absolute Lymphs (auto) (1.0-4.6) Absolute Monos (auto) (0.0-1.3) Lymphocytes % (24.0-44.0) % Monocytes % (0.0-12.0) % Eosinophils % (0.00-5.0) % Basophils % (0.0-0.4) % Absolute Granulocytes (1.4-6.9) Basophils # (0-0.4) PT 11.8 (8.83-12.87) SECONDS INR 1.04 (0.8-3.0) APTT 30.3 (24.1-36.1) SECONDS Sodium 143 (137-145) mmol/L Potassium 3.6 (3.5-5.1) mmol/L Chloride 110 H (98-107) mmol/L Carbon Dioxide 20 L (22-30) mmol/L Anion Gap 16.6 H (5-15) MEQ/L BUN 12 (9-20) mg/dL Creatinine 0.92 (0.66-1.25) mg/dL Estimated GFR > 60.0 ML/MIN Glucose 96 (74-106) mg/dL Calcium 10.1 (8.4-10.2) mg/dL Magnesium (1.6-2.3) mg/dL Total Bilirubin 4.10 H (0.2-1.3) mg/dL AST 23 (17-59) U/L ALT 26 (0-50) U/L Alkaline Phosphatase 80 (38-126) U/L Creatine Kinase 172 H (55-170) U/L Troponin I < 0.012 (0.000-0.034) ng/mL NT-Pro-B Natriuret Pep 27.9 (0-450) pg/mL Serum Total Protein 8.1 (6.3-8.2) g/dL Albumin 4.8 (3.5-5.0) g/dL Urine Color (YELLOW) Urine Appearance (CLEAR) Urine pH (5-6) Ur Specific Timpson (1.005-1.025) Urine Protein (Negative) Urine Ketones (NEGATIVE) Urine Blood (0-5) Brendan/ul Urine Nitrite (NEGATIVE) Urine Bilirubin (NEGATIVE) Urine Urobilinogen (0-1) mg/dL Ur Leukocyte Esterase (NEGATIVE) Urine WBC (Auto) (0-5) /HPF Urine RBC (Auto) (0-2) /HPF U Epithel Cells (Auto) (FEW) /HPF Urine Bacteria (Auto) (NEGATIVE) /HPF Urine Mucus (Auto) (NEGATIVE) /HPF Urine Culture Reflexed (NO) Urine Glucose (NEGATIVE) mg/dL Urine Opiates Level (NEGATIVE) Ur Methadone (NEGATIVE) Urine Barbiturates (NEGATIVE) Ur Phencyclidine (PCP) (NEGATIVE) Urine Amphetamine (NEGATIVE) U Benzodiazepine Level (NEGATIVE) Urine Cocaine (NEGATIVE) Urine Marijuana (THC) (NEGATIVE) 09/23/19 Range/Units 18:01 WBC 7.2 (4.0-10.5) K/mm3 RBC 5.23 (4.1-5.6) M/mm3 Hgb 16.1 (12.5-18.0) gm/dl Hct 44.7 (42-50) % MCV 85.5 (78-100) fl MCH 30.8 (26-32) pg MCHC 36.0 (32-36) g/dl RDW 12.5 (11.5-14.0) % Plt Count 308 (150-450) K/mm3 MPV 10.6 H (6-9.5) fl Gran % 60.1 (36.0-66.0) % Eos # (Auto) 0.08 (0-0.5) Absolute Lymphs (auto) 2.05 (1.0-4.6) Absolute Monos (auto) 0.70 (0.0-1.3) Lymphocytes % 28.5 (24.0-44.0) % Monocytes % 9.7 (0.0-12.0) % Eosinophils % 1.1 (0.00-5.0) % Basophils % 0.6 (0.0-0.4) % Absolute Granulocytes 4.32 (1.4-6.9) Basophils # 0.04 (0-0.4) PT (8.83-12.87) SECONDS INR (0.8-3.0) APTT (24.1-36.1) SECONDS Sodium (137-145) mmol/L Potassium (3.5-5.1) mmol/L Chloride (98-107) mmol/L Carbon Dioxide (22-30) mmol/L Anion Gap (5-15) MEQ/L BUN (9-20) mg/dL Creatinine (0.66-1.25) mg/dL Estimated GFR ML/MIN Glucose (74-106) mg/dL Calcium (8.4-10.2) mg/dL Magnesium (1.6-2.3) mg/dL Total Bilirubin (0.2-1.3) mg/dL AST (17-59) U/L ALT (0-50) U/L Alkaline Phosphatase (38-126) U/L Creatine Kinase (55-170) U/L Troponin I (0.000-0.034) ng/mL NT-Pro-B Natriuret Pep (0-450) pg/mL Serum Total Protein (6.3-8.2) g/dL Albumin (3.5-5.0) g/dL Urine Color (YELLOW) Urine Appearance (CLEAR) Urine pH (5-6) Ur Specific Timpson (1.005-1.025) Urine Protein (Negative) Urine Ketones (NEGATIVE) Urine Blood (0-5) Brendan/ul Urine Nitrite (NEGATIVE) Urine Bilirubin (NEGATIVE) Urine Urobilinogen (0-1) mg/dL Ur Leukocyte Esterase (NEGATIVE) Urine WBC (Auto) (0-5) /HPF Urine RBC (Auto) (0-2) /HPF U Epithel Cells (Auto) (FEW) /HPF Urine Bacteria (Auto) (NEGATIVE) /HPF Urine Mucus (Auto) (NEGATIVE) /HPF Urine Culture Reflexed (NO) Urine Glucose (NEGATIVE) mg/dL Urine Opiates Level (NEGATIVE) Ur Methadone (NEGATIVE) Urine Barbiturates (NEGATIVE) Ur Phencyclidine (PCP) (NEGATIVE) Urine Amphetamine (NEGATIVE) U Benzodiazepine Level (NEGATIVE) Urine Cocaine (NEGATIVE) Urine Marijuana (THC) (NEGATIVE) - Progress Progress: improved, re-examined Air Movement: good Progress Note: 09/23/19 17:13 PERC Rule for Pulmonary Embolism Rules out PE if no criteria are present and pre-test probability is =15%. When to Use Pearls/Pitfalls Why Use * Age =50 * No0 * Yes+1 * HR =100 * No0 * Yes+1 * O2 sat on room air <95% * No0 * Yes+1 Unilateral leg swelling No0 Yes+1 Hemoptysis No0 Yes+1 Recent surgery or trauma Surgery or trauma =4 weeks ago requiring treatment with general anesthesia No0 Yes+1 Prior PE or DVT No0 Yes+1 Hormone use Oral contraceptives, hormone replacement or estrogenic hormones use in males or female patients No0 Yes+1 0 criteria No need for further workup, as <2% chance of PE. N0 need for D-Dimer and CT scan of Pulmonary Arteries due to risk factors and negative PERC score If no criteria are positive and clinicians pre-test probability is <15%, PERC Rule criteria are satisfied. 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 HEART score: 1, low risk, MACE less than 1.6% in next 6 weeks 09/23/19 19:25 Blood Culture(s) Obtained: No Antibiotics given: No Counseled pt/family regarding: lab results, diagnosis, need for follow-up, rad results - Departure Departure Disposition: Home Clinical Impression: Chest tightness, Paresthesia and pain of both upper extremities, Total bilirubin, elevated, Elevated blood pressure reading without diagnosis of hypertension Condition: Good Critical Care Time: No Referrals: JESSICA GUZMÁN [Primary Care Provider] - 09/24/19 Instructions: Gilbert's Syndrome, Shortness of Breath (Dyspnea) (DC), Chest Pain (DC), Paresthesias (DC) Additional Instructions: keep your appointment in the morning of 09/24/2019 with your doctor discussed getting testing for your elevated bilirubin test. Drink plenty of fluids. Return immediately back to the emergency room if any worse chest pain, shortness of breath, numbness and tingling, weakness, change in skin color, change in eye color, new abdominal pain or any other concerning signs or symptoms that were not present at today's emergency room visit for immediate reevaluation in the emergency department.
[2019-09-23] MEDS ORDERED: BENADRYL 50 MG/ML ONE ×2 (17:15→17:36)
[2019-09-23 18:06] LABS: Absolute Neutrophil Ct (ANC) 4.32 (1.4-6.9); BASOPHIL % 0.6 % (0.0-0.4); Basophil (Absolute #) 0.04 (0-0.4); Eosinophil % 1.1 % (0.00-5.0); Eosinophil (Absolute #) 0.08 (0-0.5); Hematocrit 44.7 % (42-50); Hemoglobin 16.1 gm/dl (12.5-18.0); Lymphocyte (Absolute #) 2.05 (1.0-4.6); Lymphocytes % 28.5 % (24.0-44.0); Mean Cell Volume 85.5 fl (78-100); Mean Corpuscular Hemoglobin 30.8 pg (26-32); Mean Platelet Volume 10.6 fl (6-9.5); Monocytes % 9.7 % (0.0-12.0); Neutrophil % 60.1 % (36.0-66.0); Platelet Count 308 K/mm3 (150-450); Red Blood Count 5.23 M/mm3 (4.1-5.6); Red Cell Distribution Width 12.5 % (11.5-14.0); White Blood Count 7.2 K/mm3 (4.0-10.5)
[2019-09-23 18:17] LABS: INR 1.04 (0.8-3.0); PROTIME 11.8 SECONDS (8.83-12.87)
[2019-09-23 18:20] LABS: PTT 30.3 SECONDS (24.1-36.1)
[2019-09-23 18:30] LABS: ALBUMIN 4.8 g/dL (3.5-5.0); ALKALINE PHOSPHATASE 80 U/L (38-126); ANION GAP 16.6 MEQ/L (5-15); BLOOD UREA NITROGEN 12 mg/dL (9-20); CHLORIDE 110 mmol/L (98-107); CK-Creatinine Phosphokinase 172 U/L (55-170); Calcium 10.1 mg/dL (8.4-10.2); Carbon Dioxide 20 mmol/L (22-30); Creatinine 1 0.92 mg/dL (0.66-1.25); Glucose 96 mg/dL (74-106); NT PRO BNP 27.9 pg/mL (0-450); Potassium 3.6 mmol/L (3.5-5.1); SGOT/AST 23 U/L (17-59); SGPT/ALT 26 U/L (0-50); SODIUM 143 mmol/L (137-145); Total Protein 8.1 g/dL (6.3-8.2)
[2019-09-23 19:27] VITALS: O2SAT 99
[2019-09-23 19:36] LABS: Amphetamine,Urine NEGATIVE (NEGATIVE); Barbiturate,Urine NEGATIVE (NEGATIVE); Benzodiazepine,Urine NEGATIVE (NEGATIVE); Cocaine,Urine NEGATIVE (NEGATIVE); Methadone,Urine NEGATIVE (NEGATIVE); Opiate,Urine NEGATIVE (NEGATIVE); PCP,Urine NEGATIVE (NEGATIVE); THC,Urine POSITIVE (NEGATIVE)
[2019-09-23 19:40] LABS: Appearance CLEAR (CLEAR); Bilirubin SMALL (NEGATIVE); Blood NEGATIVE Ery/ul (0-5); Glucose NEGATIVE (NEGATIVE); Ketones MODERATE (NEGATIVE); Leukocyte Esterase NEGATIVE (NEGATIVE); Mucus SLIGHT /HPF (NEGATIVE); Nitrite NEGATIVE (NEGATIVE); Protein,Urine Dip 30 (Negative); Specific Gravity 1.035 (1.005-1.025); Urobilinogen 4 mg/dL (0-1); WBC 0-2 /HPF (0-5)
[2019-09-23 19:41] LABS: Bacteria NONE SEEN /HPF (NEGATIVE)
--- NOTE | 2019-09-23 20:04 | XRAY ---
Indication: Short of breath. Comparison: None Portable chest again hyperinflated and clear. Heart and mediastinal structures within normal limits. Bony thorax intact. Impression: Stable nonacute hyperinflated chest.
[2019-09-23 20:25] VITALS: BP 136/77; PULSE 76
== END 2019-09-23 20:27 | disposition home or self-care (01) ==
LOC: ED 16:41
DX: R07.89 Other chest pain (principal); R20.2 Paresthesia of skin; M79.602 Pain in left arm; M79.601 Pain in right arm; R03.0 Elevated blood-pressure reading, without diagnosis of hypertension
CPT/HCPCS: 36415; 71045; 80053; 80307; 81001; 82550; 83735; 83880; 84484; 85025; 85610; 85730; 96374; 99284; J1200

== ENCOUNTER 2024-07-19 10:30 | Emergency (ER) | payer OTHER ==
[2024-07-19 10:47] VITALS: RESP 18; TEMP 97.7
--- NOTE | 2024-07-19 11:52 | XRAY ---
Indication: Pain following fall. Comparison: None 3 view sacrum/coccyx demonstrates minimal degenerative changes lower lumbar spine and minimal aortic calcifications. No other bony, articular, or soft tissue abnormalities.
[2024-07-19] MEDS ORDERED: TORAdol 30 mg Injection ONE (11:54)
[2024-07-19] MEDS: TORAdol 30 mg Injection IM ONE (11:56)
[2024-07-19 12:08] VITALS: BP 120/74; PULSE 61; O2SAT 95
--- NOTE | 2024-07-19 12:20 | ERPHSYRPT ---
- History of Present Illness Time Seen by Provider: 07/19/24 11:08 Source: patient Exam Limitations: no limitations Patient Subjective Stated Complaint: C/o sudden onset of coccyx and lower back pain. States sharp pain with certain movements. Triage Nursing Assessment: Ambulated back to ER with a slow gait. Sitting on side of bed; indicates increased in pain if he lays down. Denies falls or injury. Skin tone normal. Physician History: 33 years old male presented in the ER with sudden onset tailbone area pain after he leaned forward over to the bed. Patient reports moderate to severe sharp pain started almost half an hour prior to arrival, nonradiating, aggravated with movements and certain way and partial relief with being still/lying. No radiation to lower extremities, no loss of bowel or bladder control or lower extremity numbness tingling or weakness. Denies any popping sensation feeling. No abdominal pain. Denies any fall or other trauma. Allergies/Adverse Reactions: No Known Drug Allergies Allergy (Verified 07/19/24 10:39) Home Medications: Venlafaxine HCl 37.5 mg [Effexor 37.5 mg] 37.5 mg PO DAILY 07/19/24 [History] Hx Tetanus, Diphtheria Vaccination/Date Given: Yes Hx Influenza Vaccination/Date Given: No Hx Pneumococcal Vaccination/Date Given: No Immunizations Up to Date: Yes Travel Risk - International Travel Have you traveled outside of the country in past 3 weeks: No - Emerging Infectious Disease Are you exhibiting symptoms associated with any current EIDs: No - Review of Systems Constitutional: No Symptoms Ears, Nose, & Throat: No Symptoms Respiratory: No Symptoms Cardiac: No Symptoms Genitourinary Symptoms: No Symptoms Musculoskeletal: Back Pain Skin: No Symptoms Neurological: No Symptoms Endocrine: No Symptoms Hematologic/Lymphatic: No Symptoms - Past Medical History Pertinent Past Medical History: Yes Neurological History: No Pertinent History ENT History: No Pertinent History Cardiac History: No Pertinent History Respiratory History: Asthma Endocrine Medical History: No Pertinent History Musculoskeletal History: Fractures, Other GI Medical History: GERD History: No Pertinent History Psycho-Social History: Anxiety, Depression Male Reproductive Disorders: No Pertinent History Other Medical History: fx L arm, R shoulder multiple dislocations - Past Surgical History Past Surgical History: No Neuro Surgical History: No Pertinent History Cardiac: No Pertinent History Respiratory: No Pertinent History Gastrointestinal: No Pertinent History Genitourinary: No Pertinent History Musculoskeletal: No Pertinent History Male Surgical History: No Pertinent History - Social History Smoking Status: Current every day smoker How long have you smoked: 15 Exposure to second hand smoke: No Drug Use: marijuana Patient Lives Alone: No - Social Determinants of Health Will the patient participate in the screening: Yes Do you worry about a steady place to live?: No Do you have any problems with any of the following?: No known problems In the past 12 months,have you had to go without utilities?: No Transportation Issues: No Has anyone in your support network made you feel unsafe?: No Have you or anyone in your house had to go without enough: No - Nursing Vital Signs Nursing Vital Signs: Initial Vital Signs Temperature 97.7 F 07/19/24 10:42 Pulse Rate 70 07/19/24 10:42 Respiratory Rate 18 07/19/24 10:42 Blood Pressure 133/98 07/19/24 10:42 O2 Sat by Pulse Oximetry 96 07/19/24 10:42 Pain Scale Pain Intensity 0 - Physical Exam General Appearance: no apparent distress Eye Exam: PERRL/EOMI Ears, Nose, Throat Exam: normal ENT inspection Neck Exam: normal inspection, full range of motion Respiratory Exam: normal breath sounds, lungs clear Cardiovascular Exam: regular rate/rhythm, normal heart sounds Gastrointestinal Exam: soft, normal bowel sounds, No tenderness Back Exam: normal inspection, point tenderness (Coccyx area), No vertebral tenderness Extremity Exam: normal inspection, normal range of motion, pelvis stable Neurologic Exam: alert, oriented x 3, cooperative, airborne operations II-XII nml as tested, nml cerebellar function, sensation nml, motor deficits Skin Exam: normal color SpO2 Interpretation: normal SpO2: 95 O2 Delivery: Room Air Ordered Tests: Active Orders 24 hr Category Date Time Status SACRUM AND COCCYX Stat Exams 07/19/24 11:10 Completed Medication Summary Discontinued Medications Generic Name Dose Route Start Last Admin Trade Name Freq PRN Reason Stop Dose Admin Ketorolac Tromethamine 30 mg 07/19/24 11:10 07/19/24 11:56 Ketorolac Tromethamine 30 Mg/Ml Inj IM 07/19/24 11:11 30 mg STAT ONE Administration Ketorolac Tromethamine Confirm 07/19/24 11:54 Ketorolac Tromethamine 30 Mg/Ml Inj Administered 07/19/24 11:55 Dose 30 mg .ROUTE .STPrevacus-MED ONE - Progress Progress Note: 07/19/24 12:19 33-year-old is evaluated in the ER for sudden onset coccyx area pain after he leaned forward. Patient has no cauda equina symptoms. Has point tenderness in the coccyx area. Negative neuroexam and lower extremities. X-rays are negative for acute findings and sacrum/coccyx. Has no lumbar spinal tenderness or step- off deformity. He is given Toradol for symptomatic relief, on reevaluation fee ling better. I will continue with NSAIDs to go home. Discussed signs symptoms of worsening needing return to ER which he seems understanding. Stable for discharge. Medical Desision Making - Diagnostic Testing Diagnostic test were ordered, analyzed, and reviewed by me: Yes Radiological Interpretation: Reviewed by me - Risk of complications The pt has a mod risk of morbidity or mortality based on: Need for prescription drug management - Departure Departure Disposition: Home Clinical Impression: Coccygeal pain, acute Condition: Stable Critical Care Time: No Referrals: JESSICA GUZMÁN [Primary Care Provider] - Follow up with PCP 1 day Instructions: Coccyx injury Additional Instructions: Intermittent ice application. Take Tylenol/ibuprofen as needed. Follow-up with primary care for reevaluation. Return to ER for excruciating pain, numbness tingling weakness of lower extremities, saddle anesthesia, loss of bowel or bladder control etc. Prescriptions: Ibuprofen 600 mg PO Q6HPRN PRN 10 Days #20 tablet PRN Reason: Pain
== END 2024-07-19 11:55 | disposition home or self-care (01) ==
LOC: ED 10:30
DX: M53.3 Sacrococcygeal disorders, not elsewhere classified (principal); Z79.899 Other long term (current) drug therapy; Z72.0 Tobacco use
CPT/HCPCS: 72220; 96372; 99283; J1885